=== PATIENT | female | born 1940 | race Caucasian/White ===

== ENCOUNTER 2016-07-21 14:14 | Outpatient (CLI) | payer MEDICARE, OTHER | END 2016-07-21 14:15 | disposition home or self-care (01) | DX: Z79.01 Long term (current) use of anticoagulants (principal) ==

== ENCOUNTER 2016-11-28 09:53 | Outpatient (CLI) | payer MEDICARE, OTHER ==
[2016-11-28 20:06] LABS: CORTISOL 4.8 ug/dL
[2016-11-28 20:28] LABS: THYROID STIMULATING HORMONE 0.17 uIU/mL (0.34-5.60)
== END 2016-11-28 09:54 | disposition home or self-care (01) ==
LOC: LAB.F 09:53
PROVIDERS: ATTEND Internal Medicine
DX: E03.9 Hypothyroidism, unspecified (principal)
CPT/HCPCS: 36415; 82533; 84439; 84443; 84481

== ENCOUNTER 2017-07-22 09:53 | Outpatient (CLI) | payer MEDICARE, OTHER ==
--- NOTE | 2017-07-23 14:45 | Mammography Report ---
DIGITAL SCREENING MAMMOGRAM: 07/22/2017 CLINICAL INDICATION: A 77-year-old nulliparous patient for screening. COMPARISON: 02/2014, 08/2012, 08/2011, 08/2010, 08/2009. TECHNIQUE: Routine CC and MLO projections were obtained of the breasts. FINDINGS: Parenchymal tissue within the breasts is predominantly fatty replaced. There are no dominant masses, suspicious microcalcifications, or secondary signs of malignancy. In comparison to the previous studies, there are no significant changes. IMPRESSION: NO MAMMOGRAPHIC EVIDENCE OF MALIGNANCY. NO SIGNIFICANT INTERVAL CHANGES. RECOMMENDATION: Screening mammography is recommended annually. BIRADS category 1 - negative. STANDARD QUALIFYING STATEMENTS: 1. This examination was reviewed with the aid of Computed-Aided Detection (CAD). 2. A negative or benign imaging report should not delay biopsy if clinically suspicious findings are present. Consider surgical consultation if warranted. More than 5% of cancers are not identified by imaging. 3. Dense breasts may obscure an underlying neoplasm. TD: 07/23/2017 14:44
== END 2017-07-22 09:54 | disposition home or self-care (01) ==
LOC: DI 09:53
PROVIDERS: ATTEND Internal Medicine
DX: Z12.31 Encounter for screening mammogram for malignant neoplasm of breast (principal)
CPT/HCPCS: 77067

== ENCOUNTER 2017-09-17 13:10 | Outpatient (CLI) | payer MEDICARE, OTHER ==
--- NOTE | 2017-09-17 15:03 | Ultrasound Report ---
ULTRASOUND RIGHT PERIAREOLAR BREAST: 09/17/2017 CLINICAL INDICATION: Right nipple pain. TECHNIQUE: Real-time scanning was performed with plastic products sales representative static images obtained. FINDINGS: Ultrasound of the right periareolar breast was performed. Comparison is made to screening mammogram of 07/22/2017. Unremarkable parenchymal lobules are seen. No suspicious mass is identified. No sonographically suspicious findings are appreciated. IMPRESSION: NEGATIVE EXAMINATION. RECOMMENDATION: Routine annual screening, due in July 2018, unless otherwise clinically indicated. BI-RADS CATEGORY 1 - NEGATIVE. TD: 09/17/2017 15:02
--- NOTE | 2017-09-17 15:05 | Ultrasound Report ---
LEFT BREAST ULTRASOUND: 09/17/2017 CLINICAL INDICATION: Left nipple pain. TECHNIQUE: Real-time scanning of the left periareolar breast was performed with asset protection representative static images obtained. COMPARISON: Screening mammogram 07/22/2017. FINDINGS: Unremarkable parenchymal lobules are seen. No discrete mass is identified. No sonographically suspicious findings are appreciated. IMPRESSION: NEGATIVE EXAMINATION. RECOMMENDATION: Routine annual screening, next due in July 2018, unless otherwise clinically indicated. BI-RADS CATEGORY 1 - NEGATIVE. TD: 09/17/2017 15:05
== END 2017-09-17 13:11 | disposition home or self-care (01) ==
LOC: DI 13:10
PROVIDERS: ATTEND Internal Medicine
DX: N64.59 Other signs and symptoms in breast (principal); N64.4 Mastodynia
CPT/HCPCS: 76642

== ENCOUNTER 2017-10-13 14:16 | Outpatient (CLI) | payer MEDICARE, OTHER ==
[2017-10-13 18:24] LABS: THYROID STIMULATING HORMONE 0.09 uIU/mL (0.34-5.60)
[2017-10-13 18:25] LABS: FREE T4 (FREE THYROXINE) 1.09 ng/dL (0.58-1.64)
== END 2017-10-13 14:17 | disposition home or self-care (01) ==
LOC: LAB.F 14:16
PROVIDERS: ATTEND Internal Medicine
DX: E03.9 Hypothyroidism, unspecified (principal)
CPT/HCPCS: 36415; 84439; 84443; 84481

== ENCOUNTER 2018-04-15 12:11 | Emergency (ER) | payer MEDICARE, OTHER ==
[2018-04-15 12:47] LABS: BASOPHILS # (AUTO) 0.1 10^3/uL (0.0-0.1); BASOPHILS % (AUTO) 0.8 %; EOSINOPHILS # (AUTO) 0.2 10^3/uL (0.0-0.7); EOSINOPHILS % (AUTO) 2.8 %; HGB - HEMOGLOBIN 10.2 g/dL (12.0-16.0); LYMPHOCYTES # (AUTO) 1.2 10^3/uL (1.5-3.5); LYMPHOCYTES % (AUTO) 13.4 %; MEAN CORPUSCULAR HEMOGLOBIN 23.1 pg (27.0-31.0); MEAN CORPUSCULAR HGB CONC 31.8 g/dL (32.0-36.0); MEAN CORPUSCULAR VOLUME 72.7 fL (81.0-99.0); MEAN PLATELET VOLUME 8.3 fL (7.9-10.8); MONOCYTES # (AUTO) 0.9 10^3/uL (0.0-1.0); MONOCYTES % (AUTO) 9.8 %; NEUTROPHILS # (AUTO) 6.4 10^3/uL (1.5-6.6); NEUTROPHILS % (AUTO) 73.2 %; PLT - PLATELET COUNT 381 10^3/uL (130-450); RED BLOOD COUNT 4.43 10^6/uL (4.20-5.40); RED CELL DISTRIBUTION WIDTH 16.9 % (12.0-15.0); WHITE BLOOD COUNT 8.8 x10^3/uL (4.8-10.8)
[2018-04-15 13:02] LABS: ALBUMIN 3.9 g/dL (3.2-5.5); ALBUMIN/GLOBULIN RATIO 1.4 (1.0-2.2); BILIRUBIN,TOTAL 0.6 mg/dL (0.2-1.0); CALCIUM 8.7 mg/dL (8.5-10.3); CREATININE 1.1 mg/dL (0.4-1.0); TOTAL PROTEIN 6.6 g/dL (6.7-8.2)
--- NOTE | 2018-04-15 13:16 | ED Physician Documentation ---
PD HPI CHEST PAIN - Stated complaint Stated Complaint: CHEST PRESSURE/WEAKNESS - Chief complaint Chief Complaint: Cardiac - History obtained from History obtained from: Patient - History of Present Illness Timing - onset: Other (She's had month's worth of intermittent chest pain, anterior to throat. Worse today. Assoc with 1 week of fatigue. Has not been able to do her normal exercise for 1 week due to fatigue. 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 denies: Fever, Chills Cardiac: reports: Chest pain / pressure. denies: Palpitations, Pedal edema, Calf pain Respiratory: denies: Dyspnea, Cough GI: denies: Abdominal Pain, Nausea, Vomiting PD PAST MEDICAL HISTORY - Past Medical History Past Medical History: Yes Endocrine/Autoimmune: HyPOthyroidism - Past Surgical History Past Surgical History: Yes - Present Medications Home Medications: Ambulatory Orders Medication Instructions Recorded Confirmed Aspirin 81 mg PO DAILY 08/17/14 08/17/14 Clopidogrel Bisulfate [Plavix] 75 mg PO DAILY 08/17/14 08/17/14 Levothyroxine Sodium [Levoxyl] 112 mcg PO DAILY 08/17/14 08/17/14 Atorvastatin Calcium 80 mg PO 04/15/18 04/15/18 Metoprolol Succinate 25 mg PO DAILY #30 tab.er.24h 04/15/18 - Allergies Allergies/Adverse Reactions: Allergies Allergy/AdvReac Type Severity Reaction Status Date / Time No Known Drug Allergies Allergy Verified 04/15/18 12:20 - Social History Does the pt smoke?: No Smoking Status: Never smoker Does the pt drink ETOH?: Yes Does the pt have substance abuse?: No - Immunizations Immunizations are current?: Yes - POLST Patient has POLST: No PD ED PE NORMAL - Vitals Vital signs reviewed: Yes - General General: Alert and oriented X 3, No acute distress - HEENT HEENT: PERRL, EOMI - Neck Neck: Supple, no meningeal sign, No bony TTP - Cardiac Cardiac: RRR, No murmur - Respiratory Respiratory: No respiratory distress, Clear bilaterally - Abdomen Abdomen: Normal bowel sounds, Soft, Non tender - Back Back: No CVA TTP, No spinal TTP - Derm Derm: Normal color, Warm and dry - Extremities Extremities: No edema, No calf tenderness / cord - Neuro Neuro: Alert and oriented X 3, Normal speech - Psych Psych: Normal mood, Normal affect Results - Vitals Vitals: Vital Signs - 24 hr 04/15/18 12:17 Temperature 36.1 C L Heart Rate 80 Respiratory 18 Rate Blood Pressure 135/69 H O2 Saturation 100 Oxygen O2 Source Room air - EKG (time done) 1225 Rate: Rate (enter#) (75) Rhythm: NSR [place]: Normal Intervals: Normal GA QRS: Low voltage Ischemia: Normal ST segments Computer interpretation: Agree with computer - Labs Labs: Laboratory Tests 04/15/18 04/15/18 04/15/18 12:40 12:40 12:40 WBC 8.8 RBC 4.43 Hgb 10.2 L Hct 32.2 L MCV 72.7 L MCH 23.1 L MCHC 31.8 L RDW 16.9 H Plt Count 381 MPV 8.3 Neut # (Auto) 6.4 Lymph # (Auto) 1.2 L [place] # (Auto) 0.9 Eos # (Auto) 0.2 Baso # (Auto) 0.1 Absolute Nucleated RBC 0.00 Nucleated RBC % 0.0 Sodium 138 Potassium 3.6 Chloride 111 Carbon Dioxide 22 Anion Gap 5.0 L BUN 27 H Creatinine 1.1 H Estimated GFR (MDRD) 48 L Glucose 100 Calcium 8.7 Total Bilirubin 0.6 AST 34 ALT 43 Alkaline Phosphatase 95 Troponin I < 0.04 Total Protein 6.6 L Albumin 3.9 Globulin 2.7 Albumin/Globulin Ratio 1.4 Lipase 35 04/15/18 14:57 WBC RBC Hgb Hct MCV MCH MCHC RDW Plt Count MPV Neut # (Auto) Lymph # (Auto) [place] # (Auto) Eos # (Auto) Baso # (Auto) Absolute Nucleated RBC Nucleated RBC % Sodium Potassium Chloride Carbon Dioxide Anion Gap BUN Creatinine Estimated GFR (MDRD) Glucose Calcium Total Bilirubin AST ALT Alkaline Phosphatase Troponin I < 0.04 Total Protein Albumin Globulin Albumin/Globulin Ratio Lipase PD MEDICAL DECISION MAKING - ED course ED course: This is a 78-year-old with almost subacute to chronic intermittent chest pain. EKG and biomarkers are negative. It is a little worse today. We will check a second troponin II hours after the first. She is advised she will need an expedited outpatient stress test. I spoke with her primary care physician, Dr. Meeks in [place] who will arrange for a cardiology referral for likely expedited stress test. Departure - Departure Disposition: 01 Home, Self Care Clinical Impression: Chest pain Qualifiers: Chest pain type: unspecified Qualified Code(s): R07.9 - Chest pain, unspecified Condition: Good Record reviewed to determine appropriate education?: Yes Instructions: ED Chest Pain Atypical Unkn Cause Prescriptions: Metoprolol Succinate 25 mg PO DAILY #30 tab.er.24h Comments: EKG and cardiac enzymes are negative. This is reassuring but not diagnostic that she do not have coronary disease. Call Dr. Meeks today. I did touch base with her. She will refer you to cardiology, I suspect for a stress test.
--- NOTE | 2018-04-15 13:30 | XRAY Report ---
Reason: chest pressure Procedure Date: 04/15/2018 Accession Number: [id number] / [id number] Procedure: XR - Chest 1 View X-Ray CPT Code: 36154 FULL RESULT: EXAM: CHEST RADIOGRAPHY EXAM DATE: 04/15/2018 01:08 PM. CLINICAL HISTORY: Chest pressure. COMPARISON: Chest radiograph from 03/26/2015. TECHNIQUE: 1 view. FINDINGS: Lungs/Pleura: There are tiny calcified nodules at the left lung apex, present previously. No focal airspace opacity. No pleural effusion or pneumothorax. Mediastinum: Cardiomediastinal silhouette and pulmonary vasculature are within normal limits. Other: None. IMPRESSION: No acute cardiopulmonary abnormality. RADIA
[2018-04-15 15:34] VITALS: BP 144/68
== END 2018-04-15 15:40 | disposition home or self-care (01) ==
LOC: ED 12:11
DX: R07.9 Chest pain, unspecified (principal)
CPT/HCPCS: 36415; 71045; 80053; 83690; 84484; 85025; 93005; 99283

== ENCOUNTER 2018-05-20 15:41 | Outpatient (CLI) | payer MEDICARE, OTHER | END 2018-05-20 15:42 | disposition home or self-care (01) | LOC: LAB.F 15:41 | PROVIDERS: ATTEND Nurse Practitioner Family | DX: E03.9 Hypothyroidism, unspecified (principal) | CPT/HCPCS: 36415; 84443 ==

== ENCOUNTER 2018-07-01 11:51 | Outpatient (CLI) | payer MEDICARE, OTHER ==
[2018-07-01 18:35] LABS: ALBUMIN 3.8 g/dL (3.2-5.5); ALBUMIN/GLOBULIN RATIO 1.3 (1.0-2.2); ALKALINE PHOSPHATASE 70 IU/L (42-121); ALT ALANINE AMINOTRANSFERASE 25 IU/L (10-60); AST ASPARTATE AMINOTRANSFERASE 23 IU/L (10-42); BILIRUBIN,TOTAL 0.6 mg/dL (0.2-1.0); BUN - BLOOD UREA NITROGEN 25 mg/dL (6-20); CALCIUM 9.1 mg/dL (8.5-10.3); CARBON DIOXIDE - CO2 23 mmol/L (21-32); CHLORIDE 107 mmol/L (101-111); CHOL/HDL RATIO 2.2 (<4.4); CHOLESTEROL 163 mg/dL; GFR - MDRD 54 (>89); GLUCOSE 90 mg/dL (70-100); HDL CHOLESTEROL 74 mg/dL; LDL CHOLESTEROL,CALCULATED 79 mg/dL; LDL/HDL RATIO 1.1 (<4.4); SODIUM 137 mmol/L (135-145); TOTAL PROTEIN 6.8 g/dL (6.7-8.2); VLDL CHOLESTEROL 10 mg/dL
[2018-07-01 18:56] LABS: BASOPHILS % (AUTO) 3.8 %; EOSINOPHILS % (AUTO) 1.7 %; LYMPHOCYTES % (AUTO) 15.9 %; MEAN CORPUSCULAR HEMOGLOBIN 18.5 pg (27.0-31.0); MEAN CORPUSCULAR HGB CONC 26.7 g/dL (32.0-36.0); MEAN CORPUSCULAR VOLUME 69.2 fL (81.0-99.0); MEAN PLATELET VOLUME 9.3 fL (7.9-10.8); MONOCYTES % (AUTO) 8.7 %; NEUTROPHILS % (AUTO) 69.9 %; PLT - PLATELET COUNT 447 10^3/uL (130-450); RED BLOOD COUNT 4.87 10^6/uL (4.20-5.40); RED CELL DISTRIBUTION WIDTH 18.8 % (12.0-15.0)
[2018-07-01 18:57] LABS: ABNORMAL LYMPHS % (MANUAL) 0 %
[2018-07-01 19:02] LABS: BAND NEUTROPHILS % (MANUAL) 2 %; BASOPHILS # (MANUAL) 0.1 10^3/uL (0-0.1); BASOPHILS % (MANUAL) 1 %; DIFFERENTIAL COMMENT MANUAL DIFFERENTIAL; EOSINOPHILS # (MANUAL) 0.2 10^3/uL (0-0.7); LYMPHOCYTES # (MANUAL) 1.6 10^3/uL (1.5-3.5); LYMPHOCYTES % (MANUAL) 15 %; MONOCYTES # (MANUAL) 0.9 10^3/uL (0.0-1.0); NEUTROPHILS # (MANUAL) 6.2 10^3/uL (1.5-6.6); NEUTROPHILS % (MANUAL) 67 %; PLATELET ESTIMATE, MANUAL NORMAL (130-450,000) (NORMAL); PLATELET MORPHOLOGY NORMAL APPEARANCE (NORMAL)
== END 2018-07-01 23:59 | disposition home or self-care (01) ==
LOC: LAB.F 11:51
PROVIDERS: ATTEND Hospitalist
DX: I73.9 Peripheral vascular disease, unspecified (principal); I74.3 Embolism and thrombosis of arteries of the lower extremities
CPT/HCPCS: 36415; 80053; 80061; 83721; 85025

== ENCOUNTER 2018-10-12 12:18 | Outpatient (CLI) | payer MEDICARE, OTHER ==
--- NOTE | 2018-10-13 13:02 | XRAY Report ---
Reason: BILAT HIP PAIN Procedure Date: 10/12/2018 Accession Number: [id number] / [id number] Procedure: XR - Hips 2V BILAT CPT Code: FULL RESULT: EXAM: PELVIS AND BILATERAL HIP RADIOGRAPHY EXAM DATE: 10/12/2018 12:54 PM. CLINICAL HISTORY: BILAT HIP PAIN. COMPARISON: XR HIP UNILAT MIN 2 VIEW 05/28/2012 3:22 AM. TECHNIQUE: Pelvis and each hip, 1 view each. FINDINGS: Bones: Normal. No fractures or bone lesion. Joints: Mild bilateral hip joint space narrowing similar to previous study. Unremarkable SI joints and pubic symphysis. Degenerative changes in lower lumbar spine. Anterolisthesis of L5. Soft Tissues: Unremarkable. Surgical clips in right inguinal region. Large amount of stool. IMPRESSION: 1. Mild degenerative changes of the hips, unchanged. 2. Lower lumbar degenerative changes with anterolisthesis of L5. Correlation with lateral lumbar spine view may be helpful. RADIA
== END 2018-10-12 12:19 | disposition home or self-care (01) ==
LOC: DI 12:18
PROVIDERS: ATTEND Hospitalist
DX: M16.0 Bilateral primary osteoarthritis of hip (principal); M47.816 Spondylosis without myelopathy or radiculopathy, lumbar region; M43.16 Spondylolisthesis, lumbar region
CPT/HCPCS: 73521

== ENCOUNTER 2018-10-14 14:41 | Outpatient (CLI) | payer MEDICARE, OTHER ==
--- NOTE | 2018-10-14 16:48 | DEXA Report ---
Reason: ASYMPTOMATIC MENOPAUSAL STATE,DISORDER OF BONE, UN Procedure Date: 10/14/2018 Accession Number: [id number] / [id number] Procedure: DEX - Dexa Spine and/or Hip CPT Code: FULL RESULT: EXAM: Dexa Spine and/or Hip DATE: 10/14/2018 3:10 PM CLINICAL HISTORY: ASYMPTOMATIC POST MENOPAUSAL STATE TECHNIQUE: Dual energy x-ray absorptiometry (DXA) was performed on a [employer]. Regions measured are the AP Spine, femoral neck, and if needed forearm. COMPARISON: 03/07/2014 In accordance with the International Society for Clinical Densitometry (ISCD) guidelines, data from previous exams may be reanalyzed using current recommendations and techniques. This is done to allow a more accurate basis for comparison with the current study. FINDINGS: The data for the lumbar spine is as follows: BMD (g/cm/cm) T-SCORE Z-SCORE REGION L1 0.811 -2.7 -1.3 L2 1.043 -1.3 0.1 L3 1.086 -0.9 0.4 L4 1.115 -0.7 0.7 TOTAL 1.026 -1.3 0.1 NOTE: All evaluable vertebrae are used for classification The data for the hip is as follows: BMD (g/cm/cm) T-SCORE Z-SCORE REGION Neck 0.719 -2.3 -0.6 TOTAL 0.736 -2.2 -0.6 NOTE: The femoral neck or total proximal femur, whichever is lowest, is used for classification. IMPRESSION: THE WHO CLASSIFICATION BASED ON THE INTERNATIONAL REFERENCE STANDARD IS OSTEOPENIA (REFERENCE LEFT FEMORAL NECK). THE FRACTURE RISK IS INCREASED. RECOMMENDATION: Patients with diagnosis of osteoporosis or osteopenia should have regular bone mineral density assessment. For those eligible for Medicare, routine testing is allowed once every 2 years. Testing frequency can be increased for patients who have rapidly progressing disease or for those who are receiving medical therapy to restore bone mass. COMMENT: World Health Organization (WHO) definitions for osteoporosis and osteopenia: NORMAL BMD: T-score at -1.0 or higher, fracture risk is low OSTEOPENIA BMD: T-score between -1.0 and -2.5, fracture risk is increased. OSTEOPOROSIS BMD: T-score at -2.5 or lower, fracture risk is high. National Osteoporosis Foundation recommends: 1. Obtain adequate dietary calcium (at least 1200 mg per day) and vitamin D (400-800 international units per day). 2. Participate, as appropriate, in regular weightbearing and muscle-strengthening exercise. 3. Avoid tobacco use and reduce alcohol and caffeine intake. 4. For more detailed information see the website at www.NOF.org.
== END 2018-10-14 14:42 | disposition home or self-care (01) ==
LOC: DI 14:41
PROVIDERS: ATTEND Hospitalist
DX: M85.89 Other specified disorders of bone density and structure, multiple sites (principal); Z78.0 Asymptomatic menopausal state
CPT/HCPCS: 77080

== ENCOUNTER 2019-11-25 12:49 | Outpatient (CLI) | payer MEDICARE, OTHER ==
[2019-11-25 13:16] LABS: BASOPHILS % (AUTO) 0.5 %; EOSINOPHILS # (AUTO) 0.1 10^3/uL (0.0-0.7); EOSINOPHILS % (AUTO) 1.3 %; HGB - HEMOGLOBIN 16.3 g/dL (12.0-16.0); LYMPHOCYTES # (AUTO) 1.7 10^3/uL (1.5-3.5); LYMPHOCYTES % (AUTO) 22.5 %; MEAN CORPUSCULAR HEMOGLOBIN 30.1 pg (27.0-31.0); MEAN CORPUSCULAR HGB CONC 32.6 g/dL (32.0-36.0); MEAN CORPUSCULAR VOLUME 92.3 fL (81.0-99.0); MEAN PLATELET VOLUME 10.6 fL (7.9-10.8); MONOCYTES # (AUTO) 0.6 10^3/uL (0.0-1.0); MONOCYTES % (AUTO) 7.8 %; NEUTROPHILS % (AUTO) 67.5 %; PLT - PLATELET COUNT 289 10^3/uL (130-450); RED BLOOD COUNT 5.42 10^6/uL (4.20-5.40); RED CELL DISTRIBUTION WIDTH 14.5 % (12.0-15.0); WHITE BLOOD COUNT 7.4 x10^3/uL (4.8-10.8)
[2019-11-25 14:25] LABS: FREE T4 (FREE THYROXINE) 0.45 ng/dL (0.58-1.64)
== END 2019-11-25 12:50 | disposition home or self-care (01) ==
LOC: LAB 12:49
PROVIDERS: ATTEND Hospitalist
DX: D64.9 Anemia, unspecified (principal); E03.9 Hypothyroidism, unspecified
CPT/HCPCS: 36415; 84439; 84443; 85025

== ENCOUNTER 2019-12-27 09:18 | Outpatient (CLI) | payer MEDICARE, OTHER | END 2019-12-27 09:19 | disposition critical access hospital (66) | LOC: EMS 09:18 | PROVIDERS: ATTEND Surgery | DX: R07.9 Chest pain, unspecified (principal) | CPT/HCPCS: A0425; A0429 ==

== ENCOUNTER 2019-12-30 10:34 | Outpatient (CLI) | payer MEDICARE, OTHER | END 2019-12-30 10:35 | disposition home or self-care (01) | LOC: COV 10:34 | PROVIDERS: ATTEND Family Medicine | DX: R05 Cough (principal); R06.02 Shortness of breath; R53.83 Other fatigue; J02.9 Acute pharyngitis, unspecified; R09.81 Nasal congestion; Z20.828 Contact with and (suspected) exposure to other viral communicable diseases ==

== ENCOUNTER 2020-04-20 15:59 | Outpatient (CLI) | payer MEDICARE, OTHER | END 2020-04-20 16:00 | disposition home or self-care (01) | LOC: COV 15:59 | PROVIDERS: ATTEND Family Medicine | DX: R07.0 Pain in throat (principal); Z20.828 Contact with and (suspected) exposure to other viral communicable diseases ==

== ENCOUNTER 2020-10-09 12:58 | Outpatient (CLI) | payer MEDICARE, OTHER ==
[2020-10-09 20:11] LABS: % IRON SATURATION 28 % (20-50); IRON 90 ug/dL (28-170); TOTAL IRON BINDING CAPACITY 321 ug/dL (250-450); TRANSFERRIN 229 mg/dL (192-382)
[2020-10-09 20:22] LABS: THYROID STIMULATING HORMONE 19.12 uIU/mL (0.34-5.60)
[2020-10-09 20:56] LABS: FREE T4 (FREE THYROXINE) 0.46 ng/dL (0.58-1.64)
== END 2020-10-09 12:59 | disposition home or self-care (01) ==
LOC: LAB.S 12:58
PROVIDERS: ATTEND Hospitalist
DX: D64.9 Anemia, unspecified (principal); E03.9 Hypothyroidism, unspecified; Z13.21 Encounter for screening for nutritional disorder
CPT/HCPCS: 36415; 82306; 83540; 84439; 84443; 84466

== ENCOUNTER 2020-10-16 13:43 | Outpatient (CLI) | payer MEDICARE, OTHER | END 2020-10-16 13:44 | disposition home or self-care (01) | LOC: LAB.S 13:43 | PROVIDERS: ATTEND Hospitalist | DX: M85.80 Other specified disorders of bone density and structure, unspecified site (principal) | CPT/HCPCS: 82306 ==

== ENCOUNTER 2022-05-14 14:02 | Outpatient (CLI) | payer MEDICARE, OTHER ==
--- NOTE | 2022-05-15 13:03 | Mammography Report ---
BILATERAL DIGITAL SCREENING MAMMOGRAM 3D/2D: 05/14/2022 CLINICAL: Routine screening. Comparison is made to exams dated: 10/31/2019 mammogram and 08/01/2017 mammogram - [facility]. Both breasts are almost entirely fatty (category a/<25% glandular tissue). No significant masses, calcifications, or other findings are seen in either breast. There has been no significant interval change. IMPRESSION: NEGATIVE There is no mammographic evidence of malignancy. A 1 year screening mammogram is recommended. Based on the Tyrer Cuzick model (a risk assessment model) the patients lifetime risk is 1.3% and her 10 year risk is 0.0%. According to the ACR, ACS, and NCCN guidelines, an annual breast MRI exam yudy g with mammogram is recommended if the patients lifetime risk is 20% or greater. This exam was interpreted at Station ID: [id number]. NOTE: For mammograms, a report in lay terms will be sent to the patient. Approximately 15% of breast malignancies will not be visualized mammographically. In the management of a palpable breast mass, a negative mammogram must not discourage biopsy of a clinically suspicious lesion. Electronically Signed By: Trevon Bourne M.D. aty/penrad:05/14/2022 16:42:22 ACR BI-RADS Category 1: Negative 3341F PARENCHYMAL PATTERN: (F) - The breast(s) demonstrate(s) diffuse fatty replacement. BI-RADS CATEGORY: (1) - 1 RECOMMENDATION: (ANNUAL) - Recommend routine annual screening mammography. [id number] 1 year screening LATERALITY: (B)
== END 2022-05-14 14:03 | disposition home or self-care (01) ==
LOC: DI.S 14:02
DX: Z12.31 Encounter for screening mammogram for malignant neoplasm of breast (principal)

== ENCOUNTER 2022-08-29 11:06 | Outpatient (CLI) | payer MEDICARE, OTHER ==
[2022-08-29 11:18] LABS: BASOPHILS % (AUTO) 0.6 %; EOSINOPHILS # (AUTO) 0.2 10^3/uL (0.0-0.7); EOSINOPHILS % (AUTO) 2.2 %; HCT - HEMATOCRIT 47.1 % (37.0-47.0); HGB - HEMOGLOBIN 14.9 g/dL (12.0-16.0); LYMPHOCYTES # (AUTO) 1.7 10^3/uL (1.5-3.5); LYMPHOCYTES % (AUTO) 24.6 %; MEAN CORPUSCULAR HEMOGLOBIN 29.4 pg (27.0-31.0); MEAN CORPUSCULAR HGB CONC 31.6 g/dL (32.0-36.0); MEAN CORPUSCULAR VOLUME 92.9 fL (81.0-99.0); MEAN PLATELET VOLUME 9.9 fL (7.9-10.8); MONOCYTES # (AUTO) 0.6 10^3/uL (0.0-1.0); MONOCYTES % (AUTO) 8.5 %; NEUTROPHILS # (AUTO) 4.3 10^3/uL (1.5-6.6); NEUTROPHILS % (AUTO) 63.8 %; PLT - PLATELET COUNT 302 10^3/uL (130-450); RED BLOOD COUNT 5.07 10^6/uL (4.20-5.40); RED CELL DISTRIBUTION WIDTH 14.2 % (12.0-15.0); WHITE BLOOD COUNT 6.7 x10^3/uL (4.8-10.8)
[2022-08-29 11:36] LABS: ALBUMIN/GLOBULIN RATIO 1.9 (1.0-2.2); ALKALINE PHOSPHATASE 52 IU/L (42-121); ALT ALANINE AMINOTRANSFERASE 17 IU/L (10-60); AST ASPARTATE AMINOTRANSFERASE 17 IU/L (10-42); BILIRUBIN,TOTAL 0.8 mg/dL (0.2-1.0); BUN - BLOOD UREA NITROGEN 19 mg/dL (6-20); CALCIUM 9.2 mg/dL (8.5-10.3); CARBON DIOXIDE - CO2 27 mmol/L (21-32); CHLORIDE 106 mmol/L (101-111); CHOL/HDL RATIO 2.4 (<4.4); CHOLESTEROL 157 mg/dL; CREATININE 0.9 mg/dL (0.4-1.0); GFR - MDRD 60 (>89); GLUCOSE 107 mg/dL (70-100); HDL CHOLESTEROL 66 mg/dL; POTASSIUM 4.1 mmol/L (3.5-5.0); SODIUM 142 mmol/L (135-145); TOTAL PROTEIN 6.1 g/dL (6.7-8.2); TRIGLYCERIDES 29 mg/dL
[2022-08-29 11:44] LABS: THYROID STIMULATING HORMONE 0.81 uIU/mL (0.34-5.60)
== END 2022-08-29 11:07 | disposition home or self-care (01) ==
LOC: LAB 11:06
PROVIDERS: ATTEND Hospitalist
DX: D64.9 Anemia, unspecified (principal); I73.9 Peripheral vascular disease, unspecified; E78.49 Other hyperlipidemia; E03.9 Hypothyroidism, unspecified
CPT/HCPCS: 36415; 80053; 80061; 83721; 84443; 85025

== ENCOUNTER 2023-07-03 09:39 | Outpatient (CLI) | payer MEDICARE, OTHER ==
[2023-07-03 14:35] LABS: BASOPHILS # (AUTO) 0.1 10^3/uL (0.0-0.1); BASOPHILS % (AUTO) 0.7 %; EOSINOPHILS # (AUTO) 0.3 10^3/uL (0.0-0.7); EOSINOPHILS % (AUTO) 4.6 %; HCT - HEMATOCRIT 49.2 % (37.0-47.0); HGB - HEMOGLOBIN 15.2 g/dL (12.0-16.0); LYMPHOCYTES # (AUTO) 1.5 10^3/uL (1.5-3.5); LYMPHOCYTES % (AUTO) 20.6 %; MEAN CORPUSCULAR HEMOGLOBIN 28.8 pg (27.0-31.0); MEAN CORPUSCULAR HGB CONC 30.9 g/dL (32.0-36.0); MEAN CORPUSCULAR VOLUME 93.4 fL (81.0-99.0); MEAN PLATELET VOLUME 10.8 fL (7.9-10.8); MONOCYTES # (AUTO) 0.7 10^3/uL (0.0-1.0); MONOCYTES % (AUTO) 9.1 %; NEUTROPHILS # (AUTO) 4.7 10^3/uL (1.5-6.6); NEUTROPHILS % (AUTO) 64.9 %; PLT - PLATELET COUNT 336 10^3/uL (130-450); RED BLOOD COUNT 5.27 10^6/uL (4.20-5.40); RED CELL DISTRIBUTION WIDTH 14.6 % (12.0-15.0); WHITE BLOOD COUNT 7.2 x10^3/uL (4.8-10.8)
[2023-07-03 16:11] LABS: % IRON SATURATION 41 % (20-50); ALBUMIN 4.1 g/dL (3.2-5.5); ALBUMIN/GLOBULIN RATIO 1.8 (1.0-2.2); ALKALINE PHOSPHATASE 62 IU/L (42-121); ALT ALANINE AMINOTRANSFERASE 13 IU/L (10-60); AST ASPARTATE AMINOTRANSFERASE 14 IU/L (10-42); BILIRUBIN,TOTAL 0.9 mg/dL (0.2-1.0); BUN - BLOOD UREA NITROGEN 21 mg/dL (6-20); CALCIUM 9.6 mg/dL (8.5-10.3); CARBON DIOXIDE - CO2 27 mmol/L (21-32); CHLORIDE 107 mmol/L (101-111); CHOL/HDL RATIO 2.5 (<4.4); CHOLESTEROL 168 mg/dL; CREATININE 0.8 mg/dL (0.6-1.3); CRP - C-REACTIVE PROTEIN < 0.5 mg/dL (<0.5); GFR - MDRD 69 (>89); GLUCOSE 88 mg/dL (74-104); HDL CHOLESTEROL 66 mg/dL; IRON 102 ug/dL (50-212); LDL CHOLESTEROL,CALCULATED 91 mg/dL; LDL/HDL RATIO 1.4 (<4.4); POTASSIUM 4.1 mmol/L (3.5-4.5); SODIUM 139 mmol/L (135-145); TOTAL IRON BINDING CAPACITY 251 ug/dL (250-450); TOTAL PROTEIN 6.4 g/dL (6.4-8.9); TRANSFERRIN 179 mg/dL (203-362); TRIGLYCERIDES 53 mg/dL (48-352); URIC ACID 5.8 mg/dL (2.3-6.6); VLDL CHOLESTEROL 11 mg/dL
[2023-07-03 16:28] LABS: THYROID STIMULATING HORMONE 4.18 uIU/mL (0.34-5.60)
[2023-07-03 16:35] LABS: FERRITIN 155.5 ng/mL (11.0-306.8)
[2023-07-03 20:33] LABS: ESTIMATED AVERAGE GLUCOSE 77 mg/dL (70-100); HEMOGLOBIN A1c% 4.3 % (4.27-6.07)
== END 2023-07-03 09:40 | disposition home or self-care (01) ==
LOC: LAB.S 09:39
PROVIDERS: ATTEND Internal Medicine
DX: I73.9 Peripheral vascular disease, unspecified (principal); E78.5 Hyperlipidemia, unspecified; E55.9 Vitamin D deficiency, unspecified; R53.83 Other fatigue; E11.9 Type 2 diabetes mellitus without complications; E06.3 Autoimmune thyroiditis; M19.072 Primary osteoarthritis, left ankle and foot; M19.049 Primary osteoarthritis, unspecified hand
CPT/HCPCS: 36415; 80053; 80061; 82306; 82607; 82728; 83036; 83540; 83721; 84439; 84443; 84466; 84481; 84550; 85025; 86140

== ENCOUNTER 2023-07-13 13:01 | Outpatient (CLI) | payer MEDICARE, OTHER ==
--- NOTE | 2023-07-14 09:23 | Mammography Report ---
BILATERAL DIGITAL SCREENING MAMMOGRAM 3D/2D: 07/13/2023 CLINICAL: Routine screening. Comparison is made to exams dated: 05/14/2022 mammogram, 10/31/2019 mammogram, and 08/01/2017 mammogra m - [facility]. Both breasts are almost entirely fatty (category a/<25% glandular tissue). No significant masses, calcifications, or other findings are seen in either breast. There has been no significant interval change. IMPRESSION: NEGATIVE There is no mammographic evidence of malignancy. A 1 year screening mammogram is recommended. Based on the Tyrer Cuzick model (a risk assessment model) the patient's lifetime risk is 0.7% and her 10 year risk is 0.0%. According to the ACR, ACS, and NCCN guidelines, an annual breast MRI exam yudy g with mammogram is recommended if the patient's lifetime risk is 20% or greater. This exam was interpreted at Station ID: [id number]. NOTE: For mammograms, a report in lay terms will be sent to the patient. Approximately 15% of breast malignancies will not be visualized mammographically. In the management of a palpable breast mass, a negative mammogram must not discourage biopsy of a clinically suspicious lesion. Electronically Signed By: Ryan martínez/penrad:07/13/2023 18:37:43 ACR BI-RADS Category 1: Negative 3341F PARENCHYMAL PATTERN: (F) - The breast(s) demonstrate(s) diffuse fatty replacement. BI-RADS CATEGORY: (1) - 1 Mammogram [id number] 1 year screening LATERALITY: (B)
== END 2023-07-13 13:02 | disposition home or self-care (01) ==
LOC: DI 13:01
DX: Z12.31 Encounter for screening mammogram for malignant neoplasm of breast (principal)

== ENCOUNTER 2023-08-12 12:25 | Outpatient (CLI) | payer MEDICARE, OTHER ==
--- NOTE | 2023-08-12 16:22 | XRAY Report ---
PROCEDURE: Foot 3+V LT (Weight Bearing) INDICATIONS: OSTEOARTHRITIS TECHNIQUE: 3 views of the foot were acquired. COMPARISON: None. FINDINGS: Bones: No fractures or dislocations. No suspicious bony lesions. Scattered IP as well as first MTP degenerative narrowing is present. No distinct erosions. Soft tissues: No tibiotalar joint effusion. Achilles tendon appears normal. IMPRESSION: IP and first MTP arthritic changes. Reviewed by: Linda Law MD on 08/12/2023 4:20 PM PDT Approved by: Linda Law MD on 08/12/2023 4:20 PM PDT Station ID: [id number]
== END 2023-08-12 12:26 | disposition home or self-care (01) ==
LOC: DI 12:25
PROVIDERS: ATTEND Internal Medicine
DX: M19.072 Primary osteoarthritis, left ankle and foot (principal)